=== PATIENT | female | born 1985 | race Caucasian/White ===

== ENCOUNTER → 2016-11-07 | Outpatient (CLI) | payer MEDICAID | LOC: MW.CHOBGYN 10:06 | PROVIDERS: ATTEND Obstetrics & Gynecology | DX: O26.859 Spotting complicating pregnancy, unspecified trimester (principal); O20.0 Threatened abortion; N92.6 Irregular menstruation, unspecified | CPT/HCPCS: 36415; 81025; 84702 ==

== ENCOUNTER → 2016-11-09 | Outpatient (CLI) | payer MEDICAID | LOC: MW.CHOBGYN 10:55 | PROVIDERS: ATTEND Obstetrics & Gynecology | DX: O20.0 Threatened abortion (principal) | CPT/HCPCS: 36415; 84702 ==